=== PATIENT | female | born 1955 ===

== ENCOUNTER 2016-11-04 08:05 | Day surgery (SDC) | payer OTHER ==
[2016-10-29 08:46] VITALS: BMI 27.2
[2016-11-04 08:43] VITALS: O2SAT 100
[2016-11-04] MEDS: Ciprofloxacin 400mg/200ml D5W 200 ML IVPB ONE ×3 (09:47→10:49)
[2016-11-04] MEDS: Gentamicin 160 MG in Sodium Chloride 0.9% 100 ML IVPB ONE ×2 (09:47→10:25)
[2016-11-04] MEDS ORDERED: Lactated Ringer's 1,000 ML IV ONE ×2 (09:47)
[2016-11-04] MEDS ORDERED: Propofol 10 mg/ml Inj (20 ML) ONE ×2 (10:24→10:51)
[2016-11-04] MEDS ORDERED: Midazolam 2 MG/2 ML VIAL ONE (10:24)
[2016-11-04] MEDS ORDERED: Iohexol 240 (50 ml) ONE (10:39)
[2016-11-04] MEDS ORDERED: Lidocaine 2% Jelly (Uro-Jet) ONE (10:42)
--- NOTE | 2016-11-04 11:11 | PCM.SURG1 ---
Surgeon's Initial Post Op Note - Surgeon's Notes Surgeon: tavia Paper Sales Representative: MISAEL Type of Anesthesia: General Mask Anesthesia Administered By: staff Pre-Operative Diagnosis: Left ureteral calculi Operative Findings: left ureteral calculi Post-Operative Diagnosis: same Operation Performed: left ureteroscopy,laser litho. stone removal,insertion of stent Specimen/Specimens Removed: stone Estimated Blood Loss: EBL {In ML}: 0 Blood Products Given: N/A Drains Used: No Drains Post-Op Condition: Good Date of Surgery/Procedure: 11/04/16 Time of Surgery/Procedure: 11:11
[2016-11-04 12:15] VITALS: RESP 18
[2016-11-04] MEDS ORDERED: HYDROmorphone 0.5 mg/0.5 ml ISec IVP PRN (12:28)
[2016-11-04 12:31] VITALS: PULSE 69
[2016-11-04 12:42] VITALS: BP 135/79; TEMP 97.2
--- NOTE | 2016-11-04 16:38 | RAD ---
PROCEDURE: Fluoroscopy up to 1 hr. HISTORY: LT. URETER CALCULI COMPARISON: None TECHNIQUE: Standard protocol for this study/examination. FINDINGS: Submitted images from the current procedure: 5.0 IMPRESSION: Less than 1 hr fluoroscopic time utilized during performance of the procedure.
--- NOTE | 2016-11-05 16:50 | RAD ---
HISTORY: Left ureteral calculi COMPARISON: CT abdomen and pelvis without contrast performed 10/03/16, abdominal x-ray performed 08/13/16 FINDINGS: BOWEL: Moderate constipation. No definite free air. BONES: No acute osseous abnormality is detected. OTHER FINDINGS: Left ureteral stent. 3 mm calcification is noted just adjacent to the distal ureteral stent, unclear this reflects a ureteral calculus or a pelvic phlebolith. Additional pelvic calcifications, likely phleboliths. IMPRESSION: Left ureteral stent. 3 mm calcification is noted just adjacent to the distal ureteral stent, unclear this reflects a ureteral calculus or a pelvic phlebolith. Additional pelvic calcifications, likely phleboliths. Moderate constipation.
--- NOTE | 2016-11-25 17:25 | OP ---
PROCEDURE DATE: 11/04/2016 PREOPERATIVE DIAGNOSIS: Left ureteral calculi. POSTOPERATIVE DIAGNOSIS: Left ureteral calculi. PROCEDURE: Left ureteroscopy and laser litho and removal of stone and stent insertion. DESCRIPTION OF PROCEDURE: The procedure was explained to the patient in detail and she signed a deta iled informed consent. She is aware of all risks and complications of the proposed surgery and alter eddi methods of managing impacted ureteral calculi. The patient was brought into the room. She was draped and prepped in the usual manner. A timeout was taken according to the rules and regulations [facility]. The patient was cystoscoped with a #21 Storz panendoscope. The tip of the le ft ureteral orifice was localized and after confirmation of the site of the stone on both x-ray repor t and film, the patient had a guidewire passed up to the renal pelvis on the left. The ureteroscope was then inserted in the left ureteral orifice. After hydro-dilatation, the scope was passed up to j ust above the intramural tunnel. The stone was visualized. The guidewire was removed and a laser fi jackie was inserted and the stone was fragmented into multiple tiny fragments. The lead fragment was gr asped with a basket and removed. After removing several fragments, the guidewire was placed in the i nstrument and passed back up to the renal pelvis. A double-J catheter was then passed over the guide wire after fluoroscopy confirmed no significant calculi were remaining. The double-J stent was then inserted in the proper position and deployed. The patient tolerated this procedure well and was sent to the recovery room in good condition. She is aware she has a stent in place which must be removed . Evan Rader MD cc: [id number] TT: 11/25/2016 17:24:23 tn
== END 2016-11-04 12:40 | disposition home or self-care (01) ==
LOC: C.SDS 08:05
PROVIDERS: ATTEND Urology
DX: N20.1 Calculus of ureter (principal)

== ENCOUNTER 2017-03-22 12:16 | Emergency (ER) | payer OTHER ==
[2017-03-22 12:17] VITALS: BMI 27.2
[2017-03-22 12:22] VITALS: O2SAT 97
[2017-03-22 12:57] LABS: ALBUMIN 3.9 g/dL (3.5-5.0)
[2017-03-22 13:00] LABS: AST/SGOT 20 U/L (14-36); BLOOD UREA NITROGEN 17 mg/dL (7-17); GFR AFRICAN-AMERICAN > 60; GFR NON-AFRICAN AMERICAN > 60
[2017-03-22 13:01] LABS: ALT/SGPT 26 U/L (9-52); CALCIUM 8.9 mg/dl (8.6-10.4); LIPASE 105 U/L (23-300)
[2017-03-22 13:05] LABS: SQUAMOUS EPITHIAL 4 /hpf (0-5); URINE BACTERIA RARE (<OCC); URINE BILIRUBIN NEGATIVE (NEGATIVE); URINE BLOOD NEGATIVE (NEGATIVE); URINE CLARITY Clear (Clear); URINE COLOR Yellow (YELLOW); URINE GLUCOSE (UA) NORMAL (Normal); URINE LEUKOCYTE ESTERASE 2+ Leu/uL (Negative); URINE NITRATE NEGATIVE (NEGATIVE); URINE PROTEIN NEGATIVE (NEGATIVE); URINE UROBILINOGEN NORMAL mg/dL (0.2-1.0)
[2017-03-22 13:11] LABS: BASO % 0.6 % (0.0-2.0); EOS # 0.1 K/uL (0.0-0.7); EOS % 1.8 % (0.0-4.0); HEMOGLOBIN 11.8 g/dL (11.0-16.0); LYMPH % 20.5 % (20.0-40.0); MEAN CELL VOLUME 85.5 fL (81.0-99.0); MEAN CORPUSCULAR HEMOGLOBIN 27.7 pg (27.0-31.0); MEAN CORPUSCULAR HGB CONC 32.4 g/dL (33.0-37.0); MEAN PLATELET VOLUME 9.3 fL (7.2-11.7); MONO # 0.6 K/uL (0.0-0.8); MONO % 11.7 % (0.0-10.0); NEUT # 3.3 K/uL (1.8-7.0); NEUT % 65.4 % (50.0-75.0); RBC 4.27 Mil/uL (3.80-5.20); RED CELL DISTRIBUTION WIDTH 14.1 % (11.5-14.5); WHITE BLOOD COUNT 5.1 K/uL (4.8-10.8)
[2017-03-22] MEDS ORDERED: Sodium Chloride 0.9% 1,000 ML IV ONE (13:56)
[2017-03-22] MEDS ORDERED: Sodium Chloride 0.9% 1,000 ML ONE (14:06)
--- NOTE | 2017-03-22 14:07 | C.PDOC ---
History Of Present Illness Patient is a 61 y/o female, [employer] employee, whose PMHx includes gastritis, and asthma, presents to the ED for evaluation of abdominal pain associated with nausea, vomiting, and diarrhea for the past 5 days. Patient reports being seen by Dr. Zimmer with similar complaints, and states her endoscopy is scheduled for 04/08/17. Otherwise, denies any fever, chills, headache, dizziness, lightheadedness, chest pain, back pain, urinary symptoms, or any other associated symptoms at this time. Time Seen by Provider: 03/22/17 12:51 Chief Complaint (Nursing): Abdominal Pain History Per: Patient History/Exam Limitations: no limitations Onset/Duration Of Symptoms: Days (5) Current Symptoms Are (Timing): Still Present Radiation Of Pain To:: None Quality Of Discomfort: "Pain" Associated Symptoms: Nausea, Vomiting, Diarrhea. denies: Fever, Chills, Loss Of Appetite, Back Pain, Chest Pain, Constipation, Urinary Symptoms Exacerbating Factors: None Alleviating Factors: None Recent travel outside of the [place]: No Additional History Per: Patient Abnormal Vaginal Bleeding: No Past Medical History Reviewed: Historical Data, Nursing Documentation, Vital Signs Vital Signs: Last Vital Signs Temp 97.8 F 03/22/17 12:19 Pulse 90 03/22/17 12:19 Resp 18 03/22/17 12:19 BP 132/84 03/22/17 12:19 Pulse Ox 97 03/22/17 14:09 - Medical History PMH: Asthma (never hospitalized), Bronchitis, Colonic Polyps, Gastritis, HTN, Hypercholesterolemia, Hypothyroidism, Kidney Stones, Chronic Kidney Disease Surgical History: Endoscopy Family History: States: Unknown Family Hx - Social History Hx Tobacco Use: No Hx Alcohol Use: No - Immunization History Hx Tetanus Toxoid Vaccination: Yes Hx Influenza Vaccination: No Hx Pneumococcal Vaccination: No Review Of Systems Except As Marked, All Systems Reviewed And Found Negative. Constitutional: Negative for: Fever, Chills Cardiovascular: Negative for: Chest Pain Gastrointestinal: Positive for: Nausea, Vomiting, Abdominal Pain, Diarrhea Genitourinary: Negative for: Dysuria, Frequency, Incontinence, Hematuria Musculoskeletal: Negative for: Back Pain Neurological: Negative for: Headache, Dizziness Physical Exam - Physical Exam Appears: Non-toxic, No Acute Distress Skin: Normal Color, Warm, Dry Head: Atraumatic, Normacephalic Eye(s): bilateral: Normal Inspection Neck: Normal ROM, Supple Chest: Symmetrical Cardiovascular: Rhythm Regular, No Murmur Respiratory: Normal Breath Sounds, No Rales, No Rhonchi, No Wheezing Gastrointestinal/Abdominal: Normal Exam, Soft, No Tenderness, No Guarding, No Rebound Back: No CVA Tenderness Extremity: Bilateral: Atraumatic, Normal ROM Neurological/Psych: Oriented x3, Normal Speech, Normal Cognition ED Course And Treatment - Laboratory Results Result Diagrams: 03/22/17 12:45 03/22/17 12:45 O2 Sat by Pulse Oximetry: 97 (on RA) Pulse Ox Interpretation: Normal Progress Note: Blood work , urinalysis ordered and reviewed. Patient was given Pepcid, Zofran, and IV fluids. Medical Decision Making Medical Decision Making: Patient feeling better, requesting discharge Disposition Counseled Patient/Family Regarding: Studies Performed, Diagnosis, Need For Followup, Rx Given - Disposition Referrals: Joel Zimmer MD [Staff Provider] - Disposition: HOME/ ROUTINE Disposition Time: 15:58 Condition: STABLE Prescriptions: Ondansetron ODT [Zofran ODT] 1 odt PO BID PRN #6 odt PRN Reason: Nausea/Vomiting Instructions: Gastritis (DC) Forms: General Discharge Instructions, Work Excuse - POA Present On Arrival: None - Clinical Impression Clinical Impression: Gastritis - Scribe Statement The provider has reviewed the documentation as recorded by the Quangibyevgeniy Goddard All medical record entries made by the Scribe were at my direction and personally dictated by me. I have reviewed the chart and agree that the record accurately reflects my personal performance of the history, physical exam, medical decision making, and the department course for this patient. I have also personally directed, reviewed, and agree with the discharge instructions and disposition.
[2017-03-22 16:03] VITALS: BP 133/81; PULSE 80; RESP 20; TEMP 97.7
== END 2017-03-22 16:05 | disposition home or self-care (01) ==
LOC: C.ER 12:16
DX: K29.70 Gastritis, unspecified, without bleeding (principal)
CPT/HCPCS: 80053; 81001; 83690; 85025; 96361; 96374; 96375; 99284; J2405; J7040

== ENCOUNTER 2017-04-08 07:01 | Day surgery (SDC) | payer OTHER, BC ==
[2017-04-08 07:28] VITALS: BMI 24.9
[2017-04-08] MEDS ORDERED: Lidocaine Hydrochloride 5 ML INJ ONE (09:49)
[2017-04-08] MEDS ORDERED: Propofol 10 mg/ml Inj (20 ML) ONE (09:49)
[2017-04-08] MEDS ORDERED: Lactated Ringer's 500 ML IV ONE ×2 (09:50)
--- NOTE | 2017-04-08 09:55 | CP.SDSHP ---
Same Day Surgery H & P - Previous Medical/Surgical History Cardiac: Hypertension Endocrine/Metabolic: Thyroid Disease Previous Surgical History: BTL - Allergies Allergies: Allergies No Known Allergies Allergy (Verified 11/12/15 10:39) - Current Medications Current Medications: reviewed, per reconciliation - Physical Exam General Appearance: wdwn nad Vital Signs: Vital Signs 04/08/17 07:28 Temperature 97.9 F Pulse Rate 70 Respiratory 19 Rate Blood Pressure 120/68 O2 Sat by Pulse 98 Oximetry Mental Status: Alert & Oriented x3 Heart: WNL Lungs: WNL GI: WNL - {Optional Preform as Required} Abdomen: WNL - Impression Impression: dysphagia Pt. Evaluated Today:Candidate for Anesthesia & Procedure: Yes - Date & Time Date: 04/08/17 Time: 09:54 Short Stay Discharge - Short Stay Discharge Admitting Diagnosis/Reason for Visit: DYSPHAGIA Disposition: HOME/ ROUTINE
[2017-04-08] MEDS ORDERED: Albuterol 0.083% Inhal Sol (2.5 mg/3 mL) UD INH ONE (10:18)
[2017-04-08 10:33] VITALS: TEMP 97.6
[2017-04-08 10:34] VITALS: O2SAT 100
[2017-04-08 11:09] VITALS: BP 140/56; PULSE 74; RESP 18
== END 2017-04-08 11:05 | disposition home or self-care (01) ==
LOC: C.ENDO 07:01
PROVIDERS: ATTEND Internal Medicine Gastroenterology
DX: K29.60 Other gastritis without bleeding (principal); K44.9 Diaphragmatic hernia without obstruction or gangrene
CPT/HCPCS: 43239; 88305; 94640; J2704; J7120

== ENCOUNTER 2017-07-09 10:54 | Emergency (ER) | payer OTHER, BC ==
[2017-07-09 10:55] VITALS: BMI 24.9
[2017-07-09 10:59] VITALS: TEMP 97.6; O2SAT 99
[2017-07-09] MEDS ORDERED: Sodium Chloride 0.9% 1,000 ML IV ONE (11:36)
--- NOTE | 2017-07-09 11:40 | C.PDOC ---
History Of Present Illness 61 y/o female, history of HTN, c/o lower abdominal cramping pain for 2 days. Patient was seen by PMD, given unknown medication. Patient also reports some nausea, vomiting, and diarrhea. Denies fevers, or other complaints. Time Seen by Provider: 07/09/17 11:28 Chief Complaint (Nursing): Abdominal Pain History Per: Patient History/Exam Limitations: no limitations Onset/Duration Of Symptoms: Days Current Symptoms Are (Timing): Still Present Location Of Pain/Discomfort: RLQ, LLQ Radiation Of Pain To:: None Quality Of Discomfort: Cramping, "Pain" Associated Symptoms: Nausea, Vomiting, Diarrhea. denies: Fever, Urinary Symptoms Recent travel outside of the [place]: No Past Medical History Reviewed: Historical Data, Nursing Documentation, Vital Signs Vital Signs: Last Vital Signs Temp 97.6 F 07/09/17 15:11 Pulse 82 07/09/17 15:11 Resp 18 07/09/17 15:11 BP 134/77 07/09/17 15:11 Pulse Ox 99 07/09/17 15:55 - Medical History PMH: Asthma (never hospitalized), Bronchitis, Colonic Polyps, Gastritis, HTN, Hypercholesterolemia, Hypothyroidism, Kidney Stones, Chronic Kidney Disease Surgical History: Endoscopy Family History: States: Unknown Family Hx - Social History Hx Tobacco Use: No Hx Alcohol Use: No Hx Substance Use: No - Immunization History Hx Tetanus Toxoid Vaccination: Yes Hx Influenza Vaccination: No Hx Pneumococcal Vaccination: No Review Of Systems Except As Marked, All Systems Reviewed And Found Negative. Constitutional: Negative for: Fever Respiratory: Negative for: Cough, Wheezing Gastrointestinal: Positive for: Nausea, Vomiting, Abdominal Pain, Diarrhea Genitourinary: Negative for: Dysuria Skin: Negative for: Rash Neurological: Negative for: Headache, Dizziness Physical Exam - Physical Exam Appears: Non-toxic, No Acute Distress Skin: Normal Color, Warm, Dry Head: Atraumatic, Normacephalic Oral Mucosa: Moist Chest: Symmetrical Cardiovascular: Rhythm Regular Respiratory: Normal Breath Sounds, No Rales, No Rhonchi, No Wheezing Gastrointestinal/Abdominal: Soft, Tenderness (lower abdomen), No Guarding, No Rebound Back: Normal Inspection Extremity: Normal ROM, Capillary Refill (< 2 sec. ) Neurological/Psych: Oriented x3, Normal Speech, Normal Cognition ED Course And Treatment - Laboratory Results Result Diagrams: 07/09/17 12:07 07/09/17 12:07 O2 Sat by Pulse Oximetry: 99 (RA) Pulse Ox Interpretation: Normal Medical Decision Making Medical Decision Making: r/o colitis- labs imaging peniding Plan: * Toradol, Zofran, IVFs. * Bloodwork * Reassess Progress:pt reassesedL abd soft no ttp. pt asking for d.c states feels well to go home. Disposition - Disposition Referrals: Bay Garcia [Staff Provider] - Disposition: HOME/ ROUTINE Disposition Time: 03:00 Condition: STABLE Additional Instructions: please follow up with specialist. return to er with worsening symptoms or concerns. Prescriptions: Ciprofloxacin HCl [Cipro] 500 mg PO BID #14 tab Metronidazole [Flagyl] 500 mg PO TID #21 tab Instructions: Enteritis (ED) Forms: [facility] (Uzbek), Work Excuse - Clinical Impression Clinical Impression: Enteritis - Scribe Statement The provider has reviewed the documentation as recorded by the Scribe SM All medical record entries made by the Scribe were at my direction and personally dictated by me. I have reviewed the chart and agree that the record accurately reflects my personal performance of the history, physical exam, medical decision making, and the department course for this patient. I have also personally directed, reviewed, and agree with the discharge instructions and disposition.
[2017-07-09] MEDS ORDERED: Sodium Chloride 0.9% 1,000 ML ONE (12:00)
[2017-07-09 12:12] LABS: BASO % 0.4 % (0.0-2.0); EOS # 0.1 K/uL (0.0-0.7); EOS % 1.7 % (0.0-4.0); HEMATOCRIT 35.8 % (34.0-47.0); LYMPH # 0.8 K/uL (1.0-4.3); LYMPH % 20.7 % (20.0-40.0); MEAN CELL VOLUME 86.5 fL (81.0-99.0); MEAN CORPUSCULAR HEMOGLOBIN 28.5 pg (27.0-31.0); MEAN CORPUSCULAR HGB CONC 32.9 g/dL (33.0-37.0); MEAN PLATELET VOLUME 9.1 fL (7.2-11.7); MONO # 0.6 K/uL (0.0-0.8); MONO % 14.2 % (0.0-10.0); NRBC % 0.1 % (0.0-2.0); RED CELL DISTRIBUTION WIDTH 13.2 % (11.5-14.5); WHITE BLOOD COUNT 3.9 K/uL (4.8-10.8)
[2017-07-09 12:22] LABS: INR 1.1
[2017-07-09 12:26] LABS: RBC URINE 2 /hpf (0-3); URINE BACTERIA RARE (<OCC); URINE BILIRUBIN NEGATIVE (NEGATIVE); URINE BLOOD NEGATIVE (NEGATIVE); URINE COLOR Amber (YELLOW); URINE GLUCOSE (UA) NORMAL (Normal); URINE KETONE NEGATIVE (NEGATIVE); URINE LEUKOCYTE ESTERASE 2+ Leu/uL (Negative); URINE PROTEIN 1+ mg/dL (NEGATIVE); URINE UROBILINOGEN NORMAL mg/dL (0.2-1.0); WBC URINE 6 /hpf (0-5)
[2017-07-09 12:27] LABS: CHLORIDE 105 mmol/L (98-107); SODIUM 138 mmol/L (132-148)
[2017-07-09 12:29] LABS: ALB/GLOB RATIO 0.9 (1.0-2.1); AST/SGOT 18 U/L (14-36); BILIRUBIN,TOTAL 0.6 mg/dL (0.2-1.3); CARBON DIOXIDE 20 mmol/L (22-30); GFR AFRICAN-AMERICAN > 60; TOTAL PROTEIN 8.2 g/dL (6.3-8.3)
[2017-07-09 12:30] LABS: ALKALINE PHOSPHATASE 85 U/L (38-126); ALT/SGPT 30 U/L (9-52); BLOOD UREA NITROGEN 17 mg/dL (7-17); CALCIUM 8.8 mg/dl (8.6-10.4); GLUCOSE,RANDOM 77 mg/dL (65-105)
[2017-07-09] MEDS ORDERED: Iodixanol 320 MG/ML 100 ML BOTTLE IV ONE (13:48)
--- NOTE | 2017-07-09 14:37 | CT ---
PROCEDURE: CT Abdomen and Pelvis with and without intravenous contrast HISTORY: lower abd pain COMPARISON: CT abdomen pelvis without contrast performed 10/03/16 TECHNIQUE: Axial images of the abdomen were obtained in the pre contrast, portal venous and delayed phases of enhancement. Coronal and sagittal reformats were generated and reviewed. Contrast dose: 100 mL Visipaque Radiation dose: Total exam DLP = 643.63 mGy-cm. This CT exam was performed using one or more of the following dose reduction techniques: Automated exposure control, adjustment of the mA and/or kV according to patient size, and/or use of iterative reconstruction technique. FINDINGS: LOWER THORAX: No visible consolidation, pleural effusion, or pneumothorax. Small hiatal hernia/distal esophageal wall thickening. LIVER: Hepatomegaly. Too small to characterize hepatic hypodensities (at least 4) measuring up to 6 mm, nonspecific. GALLBLADDER AND BILE DUCTS: Unremarkable. PANCREAS: Unremarkable. SPLEEN: Unremarkable. ADRENALS: Unremarkable. KIDNEYS AND URETERS: The kidneys enhance symmetrically. Mild fullness of the renal collecting systems, [id number]. No obstructing calculus identified. Nonobstructing 3 mm right lower pole calculus. VASCULATURE: No aortic aneurysm. BOWEL: Stomach is nondistended. Lack of oral contrast limits evaluation for bowel pathology. Bowel loops appear within normal limits of caliber without evidence of obstruction. Small bowel wall edema most prominent within the lower pelvis ; correlate clinically for enteritis. APPENDIX: The appendix is not identified. No secondary signs of acute appendicitis. PERITONEUM: No significant free fluid. No definite free air. LYMPH NODES: No bulky adenopathy identified. BLADDER: Underdistention of the urinary bladder limits evaluation. REPRODUCTIVE: Uterus is present. BONES: No acute osseous abnormality is detected. OTHER FINDINGS: None. IMPRESSION: Small bowel wall edema most prominent within the lower pelvis ; correlate clinically for enteritis. Mild fullness of the renal collecting systems, [id number]. Nonobstructing 3 mm right lower pole renal calculus. Additional findings as above.
[2017-07-09] MEDS ORDERED: Potassium Chloride 20 mEq ER Tab PO STA (14:39)
[2017-07-09] MEDS ORDERED: Potassium Chloride 20 mEq ER Tab PO ONE (14:59)
[2017-07-09 15:12] VITALS: BP 134/77; PULSE 82; RESP 18
== END 2017-07-09 15:12 | disposition home or self-care (01) ==
LOC: C.ER 10:54
DX: K52.9 Noninfective gastroenteritis and colitis, unspecified (principal); I10 Essential (primary) hypertension
CPT/HCPCS: 74178; 80053; 81001; 83690; 85025; 85610; 85730; 96361; 96374; 96375; 99285; J1885; J2405; J7040; Q9967

== ENCOUNTER 2017-08-12 05:58 | Day surgery (SDC) | payer OTHER, BC ==
[2017-08-12 06:39] VITALS: BMI 23.8
[2017-08-12] MEDS ORDERED: Midazolam 2 MG/2 ML VIAL ONE (08:02)
[2017-08-12] MEDS ORDERED: Propofol 10 mg/ml Inj (20 ML) ONE ×2 (08:02)
--- NOTE | 2017-08-12 08:15 | CP.SDSHP ---
Same Day Surgery H & P - History Proposed Procedure: Colonoscopy and biopsy Pre-Op Diagnosis: Chronic diarrhea, abnormal CT scan - Previous Medical/Surgical History Cardiac: Hypertension Comments: Kidney stones Previous Surgical History: BTL - Allergies Allergies: Allergies No Known Allergies Allergy (Verified 11/12/15 10:39) - Current Medications Current Medications: reviewed, per reconciliation - Physical Exam General Appearance: wdwn nad Vital Signs: Vital Signs 08/12/17 08/12/17 06:39 08:03 Temperature 97.4 F L 97.4 F L Pulse Rate 77 77 Respiratory 19 19 Rate Blood Pressure 108/61 108/61 O2 Sat by Pulse 98 98 Oximetry Mental Status: Alert & Oriented x3 Heart: WNL Lungs: WNL GI: WNL - {Optional Preform as Required} Abdomen: WNL - Impression Impression: Chronic diarrhea and abnormal CT scan of GI tract- R/O IBD Pt. Evaluated Today:Candidate for Anesthesia & Procedure: Yes - Date & Time Date: 08/12/17 Time: 08:14 Short Stay Discharge - Short Stay Discharge Admitting Diagnosis/Reason for Visit: CONSTIPATION Disposition: HOME/ ROUTINE
[2017-08-12 08:55] VITALS: TEMP 98; O2SAT 100
[2017-08-12 09:27] VITALS: BP 127/71; PULSE 71; RESP 17
== END 2017-08-12 09:45 | disposition home or self-care (01) ==
LOC: C.ENDO 05:58
PROVIDERS: ATTEND Internal Medicine Gastroenterology
DX: K59.00 Constipation, unspecified (principal); R19.7 Diarrhea, unspecified; K52.9 Noninfective gastroenteritis and colitis, unspecified; K64.8 Other hemorrhoids
CPT/HCPCS: 45380; 87045; 87177; 87209; 88305; J2250; J2704

== ENCOUNTER 2018-11-12 07:27 | Outpatient (CLI) | payer OTHER, BC | END 2018-11-12 07:28 | disposition home or self-care (01) | LOC: C.LAB 07:27 | DX: I10 Essential (primary) hypertension (principal); E03.9 Hypothyroidism, unspecified; R73.01 Impaired fasting glucose ==